=== PATIENT | female | born 1960 | race Caucasian/White ===

== ENCOUNTER → 2016-10-25 | Outpatient (CLI) | payer OTHER | LOC: FIMAGING 07:45 | PROVIDERS: ATTEND Obstetrics & Gynecology | DX: D25.2 Subserosal leiomyoma of uterus (principal); D25.1 Intramural leiomyoma of uterus; N83.202 Unspecified ovarian cyst, left side ==

== ENCOUNTER → 2016-10-30 | Outpatient (CLI) | payer OTHER | LOC: FIMAGING 13:25 | PROVIDERS: ATTEND Obstetrics & Gynecology | DX: Z12.31 Encounter for screening mammogram for malignant neoplasm of breast (principal) | CPT/HCPCS: G0202 ==

== ENCOUNTER → 2017-09-12 | Outpatient (CLI) | payer OTHER | LOC: FIMAGING 07:25 | PROVIDERS: ATTEND Obstetrics & Gynecology | DX: D25.9 Leiomyoma of uterus, unspecified (principal); N83.202 Unspecified ovarian cyst, left side ==